=== PATIENT | female | born 2000 | race Caucasian/White ===

== ENCOUNTER 2019-09-11 10:04 | Emergency (ER) | payer OTHER ==
--- NOTE | 2019-09-11 11:05 | EDPHYS ---
Physician Documentation [facility] Name: Milla Quintanilla Age: 19 yrs Sex: Female : 2000 Arrival Date: 09/11/2019 Time: 10:08 Bed 6 Private MD: ED Physician Antoine Godoy HPI: 09/11 10:53 This 19 yrs old Female presents to ER via Ambulatory with complaints of kb Csection bleeding. 10:53 Pt reports she her incision started bleeding at approx 0200 today. States she kb had the final raissa removed on Thursday, had not had any drainage before today. Denies fever, chills, increased pain, vomiting. Reports soreness to incision site since surgery. . Onset: The symptoms/episode began/occurred this morning. Severity of symptoms: At their worst the symptoms were mild in the emergency department the symptoms are unchanged. The patient has not experienced similar symptoms in the past. The patient has been recently seen by a physician: an official court reporter specialist, 3 day(s) ago. - Immunization history:: Adult Immunizations up to date. - Social history:: Smoking status: Patient/guardian denies using tobacco. - Ebola Screening: : No symptoms or risks identified at this time. ROS: 10:49 Constitutional: Negative for fever, chills, and weight loss, Neck: Negative for injury, kb pain, and swelling, Cardiovascular: Negative for chest pain, palpitations, and edema, Respiratory: Negative for shortness of breath, cough, wheezing, and pleuritic chest pain, Back: Negative for injury and pain, : Negative for injury, bleeding, discharge, and swelling, MS/Extremity: Negative for injury and deformity, Skin: Negative for injury, rash, and discoloration, Neuro: Negative for headache, weakness, numbness, tingling, and seizure. 10:49 Abdomen/GI: Positive for bleeding from incision. Exam: 10:50 Constitutional: This is a well developed, well nourished patient who is awake, alert, kb and in no acute distress. Head/Face: Normocephalic, atraumatic. Chest/axilla: Normal chest wall appearance and motion. Nontender with no deformity. No lesions are appreciated. Cardiovascular: Regular rate and rhythm with a normal S1 and S2. No gallops, murmurs, or rubs. Normal PMI, no JVD. No pulse deficits. Respiratory: Lungs have equal breath sounds bilaterally, clear to auscultation and percussion. No rales, rhonchi or wheezes noted. No increased work of breathing, no retractions or nasal flaring. Abdomen/GI: Soft, non-tender, with normal bowel sounds. No distension or tympany. No guarding or rebound. No evidence of tenderness throughout. Back: No spinal tenderness. No costovertebral tenderness. Full range of motion. MS/ Extremity: Pulses equal, no cyanosis. Neurovascular intact. Full, normal range of motion. Neuro: Awake and alert, GCS 15, oriented to person, place, time, and situation. Cranial nerves II-XII grossly intact. Motor strength 5/5 in all extremities. Sensory grossly intact. Cerebellar exam normal. Normal gait. 10:50 Skin: serosanguinous drainage noted to middle of incision. Vital Signs: 10:15 BP 125 / 69; Pulse 102; Resp 18; Temp 98; Pulse Ox 97% ; Pain 0/10; sv 10:45 BP 118 / 73; Pulse 94; Resp 16; Pulse Ox 97% ; sv Procedures: 10:45 Ultrasound: Type: Bedside ultrasound performed, no free abd fluid, no pockets of fluid, rn no sign of cobblestoning or abscess. , performed by the emergency department physician. MDM: 10:10 Patient medically screened. kb 10:46 Data reviewed: vital signs, nurses notes. Data interpreted: Pulse oximetry: on room air kb is 100 %. Interpretation: normal. Counseling: I had a detailed discussion with the patient and/or guardian regarding: the historical points, exam findings, and any diagnostic results supporting the discharge/admit diagnosis, the need for outpatient follow up, an OB/Gyne specialist, to return to the emergency department if symptoms worsen or persist or if there are any questions or concerns that arise at home. 10:49 ED course: serosanguinous drainage expressed from pinhole sized opening.. kb 09/11 10:46 Order name: Misc. Order: abdominal binder; Complete Time: 11:34 kb 09/11 10:46 Order name: Wound dressing: apply new steri-strips and abd pad; Complete Time: 11:15 kb Administered Medications: No medications were administered Disposition: 13:52 Co-signature as Attending Physician, Antoine Godoy MD. rn Disposition: 09/11/19 11:04 Discharged to Home. Impression: Encounter for evaluation of surgical incision . - Condition is Stable. - Discharge Instructions: Delivery, Care After, Incision Care, [id number]. - Medication Reconciliation Form, Thank You Letter, Antibiotic Education, Prescription Opioid Use form. - Follow up: Private Physician; When: 2 - 3 days; Reason: Recheck today's complaints, Continuance of care, Re-evaluation by your physician. Follow up: Emergency Department; When: As needed; Reason: Worsening of condition. Signatures: Davina Ly, MALVIN-C MALVIN-Kaelyn Abraham, RN Antoine Alicia MD MD rn Elliott, Andrea, RN RN ae4 Corrections: (The following items were deleted from the chart) 11:48 11:04 09/11/2019 11:04 Discharged to Home. Impression: Encounter for evaluation of ae4 surgical incision . Condition is Stable. Forms are Medication Reconciliation Form, Thank You Letter, Antibiotic Education, Prescription Opioid Use. Follow up: Private Physician; When: 2 - 3 days; Reason: Recheck today's complaints, Continuance of care, Re-evaluation by your physician. Follow up: Emergency Department; When: As needed; Reason: Worsening of condition. kb
--- NOTE | 2019-09-11 11:05 | ER ---
Nurse's Notes [facility] Name: Milla Quintanilla Age: 19 yrs Sex: Female : 2000 Arrival Date: 09/11/2019 Time: 10:08 Bed 6 Private MD: Diagnosis: Encounter for evaluation of surgical incision Presentation: 09/11 10:16 Presenting complaint: Patient states: at [facility] 11 days ago, iw had raissa removed Thursday, steri strips in place, noticed bleeding at incision site at 2 am today. Transition of care: patient was not received from another setting of care. Onset of symptoms was September 11, 2019. Risk Assessment: Do you want to hurt yourself or someone else? Patient reports no desire to harm self or others. Initial Sepsis Screen: Does the patient meet any 2 criteria? No. Patient's initial sepsis screen is negative. Does the patient have a suspected source of infection? No. Patient's initial sepsis screen is negative. Care prior to arrival: None. 10:16 Method Of Arrival: Ambulatory iw 10:16 Acuity: SHELIA 3 iw - Immunization history:: Adult Immunizations up to date. - Social history:: Smoking status: Patient/guardian denies using tobacco. - Ebola Screening: : No symptoms or risks identified at this time. Screenin:15 Abuse screen: Denies threats or abuse. Denies injuries from another. Nutritional sv screening: No deficits noted. Tuberculosis screening: No symptoms or risk factors identified. Fall Risk None identified. Assessment: 10:30 General: Appears in no apparent distress. uncomfortable, well developed, Behavior is sv calm, cooperative, appropriate for age. Pain: Denies pain. Neuro: Level of Consciousness is awake, alert, obeys commands, Oriented to person, place, time, situation, Gait is steady. Respiratory: Respiratory effort is even, unlabored, Respiratory pattern is regular, symmetrical. Derm: Skin is pink, warm \\T\\ dry. Injury Description: Pt has steristrips to the suprapubic area from a recent . No redness noted. 11:41 Reassessment: Abdominal binder applied, patient expressed feeling better after ae4 application. 11:48 Reassessment: Patient appears in no apparent distress at this time. No changes from sv previously documented assessment. Patient and/or family updated on plan of care and expected duration. Pain level reassessed. Patient is alert, oriented x 3, equal unlabored respirations, skin warm/dry/pink. Vital Signs: 10:15 BP 125 / 69; Pulse 102; Resp 18; Temp 98; Pulse Ox 97% ; Pain 0/10; sv 10:45 BP 118 / 73; Pulse 94; Resp 16; Pulse Ox 97% ; sv ED Course: 10:08 Patient arrived in ED. mr 10:10 Davina Ly FNP-C [facility]. kb 10:10 Antoine Godoy MD is Attending Physician. kb 10:15 Patient has correct armband on for positive identification. Bed in low position. Call sv light in reach. Adult w/ patient. Door closed. Head of bed elevated. 10:18 Triage completed. iw 10:31 Kaelyn Yusuf, RN is Primary Nurse. sv 10:59 Arm band placed on. sv 11:25 Dressings: ABD pad X 1; suprapubic area Steri strips 1/2 " X 1; suprapubic area. sv 11:35 Dressings: Abdominal binder applied. ae4 11:48 No provider procedures requiring assistance completed. Patient did not have IV access sv during this emergency room visit. Administered Medications: No medications were administered Outcome: 11:04 Discharge ordered by MD. kb 11:48 Patient left the ED. ae4 11:48 Discharged to home ambulatory, with family. sv 11:48 Condition: stable 11:48 Discharge instructions given to patient, family, Instructed on discharge instructions, follow up and referral plans. wound care, Demonstrated understanding of instructions, follow-up care, wound care. Signatures: Davina Ly FNP-C FNP-Kaelyn Abraham, RN TONO KimaAneta mr QuesadaRaine, RN TONO iw Humberto Henderson RN RN ae4
[2019-09-11 11:55] VITALS: TEMP 98; O2SAT 97
[2019-09-11 11:56] VITALS: BP 118/73
== END 2019-09-11 11:48 | disposition home or self-care (01) ==
LOC: ER 10:04
DX: Z48.01 Encounter for change or removal of surgical wound dressing (principal)
CPT/HCPCS: 99282